=== PATIENT | male | born 1985 | race Caucasian/White ===

== ENCOUNTER 2022-06-24 13:03 | Outpatient (CLI) | payer OTHER | END 2022-06-24 13:04 | disposition home or self-care (01) | LOC: TBSIIMAG 13:03 | PROVIDERS: ATTEND Neurological Surgery | DX: M51.36 Other intervertebral disc degeneration, lumbar region (principal); M51.26 Other intervertebral disc displacement, lumbar region; M51.27 Other intervertebral disc displacement, lumbosacral region | CPT/HCPCS: 72148 ==

== ENCOUNTER 2022-08-04 06:28 | Day surgery (SDC) | payer OTHER ==
[2022-08-03 10:10] VITALS: BMI 22.6
[2022-08-04] MEDS ORDERED: fentaNYL PF 100 MCG/2 ML SYRINGE ONE ×2 (06:42→07:44)
[2022-08-04] MEDS ORDERED: CEFAZOLIN 2 GM VIAL ONE ×2 (07:25→12:19)
[2022-08-04] MEDS ORDERED: Sodium Chloride 0.9% 100 ML ONE ×2 (07:25→12:19)
[2022-08-04] MEDS ORDERED: HYDROmorphone 2 MG/ML VIAL ONE ×2 (07:38→07:44)
[2022-08-04] MEDS ORDERED: Midazolam HCl 2 mg/2 ml Vial ONE (07:54)
[2022-08-04] MEDS ORDERED: Phenylephrine 10 MG/ML VIAL ONE (08:28)
[2022-08-04] MEDS ORDERED: Rocuronium Bromide 10 MG/ML (10ML VIAL) ONE (08:28)
[2022-08-04] MEDS ORDERED: PROPOFOL 200 MG/20 ML VIAL ONE (08:28)
[2022-08-04] MEDS ORDERED: Ketorolac Tromethamine 30 MG/ML VIAL ONE (08:28)
[2022-08-04] MEDS ORDERED: Ondansetron PF 4 MG/2 ML Vial ONE (08:28)
[2022-08-04] MEDS ORDERED: Dexamethasone 20 MG/5 ML VIAL ONE (08:28)
[2022-08-04] MEDS ORDERED: Thrombin 5000 UNITS/5 ML VIAL ONE (08:33)
[2022-08-04] MEDS ORDERED: Bupivacaine HCl 0.5%/Epinephrine 1:200,000/PF 30 ml Vial ONE (08:33)
[2022-08-04] MEDS ORDERED: PHENYLEPHRINE-NS 100 MCG/ML 10 ML SYRINGE ONE (08:45)
[2022-08-04] MEDS ORDERED: SUGAMMADEX SODIUM 200 MG/2 ML VIAL ONE (09:13)
[2022-08-04] MEDS ORDERED: Tamsulosin HCl 0.4 MG CAP ONE (09:54)
[2022-08-04] MEDS ORDERED: FENTANYL 50 MCG/ML 1 ML VIAL ONE (10:13)
[2022-08-04] MEDS ORDERED: HYDROcodone/Acetaminophen 5/325 mg Tablet ONE (11:10)
== END 2022-08-04 12:58 | disposition home or self-care (01) ==
LOC: SDC 06:28
PROVIDERS: ATTEND Neurological Surgery
DX: M51.16 Intervertebral disc disorders with radiculopathy, lumbar region (principal)
CPT/HCPCS: J1170; J2250; J3010; J3490

== ENCOUNTER 2024-02-01 13:45 | Outpatient (CLI) | payer OTHER ==
[~2024-02-01 13:45] MED LIST: Magnevist 469MG/ML 20 ML VIAL ONE
== END 2024-02-01 13:46 | disposition home or self-care (01) ==
LOC: MRI 13:45
DX: M51.36 Other intervertebral disc degeneration, lumbar region (principal); M54.50 Low back pain, unspecified; M51.37 Other intervertebral disc degeneration, lumbosacral region
CPT/HCPCS: 72158; A9579